=== PATIENT | female | born 1940 | race Caucasian/White ===

== ENCOUNTER 2025-01-17 15:15 | Inpatient (IN) ==
[2025-01-17 15:48] LABS: Hematocrit (blood only) 30.1 % (37.0-47.0); Hemoglobin 11.0 g/dl (12.0-16.0); Immature Granulocytes # (auto) 0.03 K/uL (0.01-0.20); Immature Granulocytes % (auto) 0.4 %; Mean Corpuscular Hemoglobin 33.7 pg (25.0-34.0); Mean Corpuscular Volume 92.3 fL (80.0-100.0); Platelet Count 305 K/uL (130-400); RDW Standard Deviation 48.4 fL (36.4-46.3); Red Blood Count 3.26 M/uL (4.20-5.40); White Blood Count 6.90 K/ul (4.8-10.8)
[2025-01-17 16:07] LABS: Alanine Aminotransferase 41 U/L (7-52); Albumin Globulin Ratio 1.3 (0.9-2); Albumin Level 4.1 gm/dl (3.4-5.0); Alkaline Phosphatase 83 U/L (34-104); Anion Gap 9 (3-11); Bilirubin,Total 0.6 mg/dl (0.2-1.0); Blood Urea Nitrogen 17 mg/dl (6-23); Calcium 10.0 mg/dl (8.6-10.3); Carbon Dioxide 25 mmol/L (21-32); Chloride 90 mmol/L (98-107); Globulin 3.1 gm/dl (2.5-4.0); Glucose 100 mg/dl (70-99(Fasting)); Magnesium 1.9 mg/dl (1.7-2.4); Potassium 4.3 mmol/L (3.5-5.1); Sodium 124 mmol/L (136-145); Total Protein 7.2 gm/dl (6.0-8.3)
--- NOTE | 2025-01-17 16:15 | XRay Report ---
XR chest 1V not portable CLINICAL HISTORY: weakness COMPARISON STUDY: None FINDINGS: Heart size and pulmonary vasculature are normal. No consolidation or pleural effusion. No p neumothorax. IMPRESSION: No acute findings. ACT 112: Negative or not required by law. Electronically signed by: Ming Rhoades M.D. 01/17/2025 4:13 PM
[2025-01-17 16:43] LABS: Influenza A virus by PCR Negative (Neg); Influenza B virus by PCR Negative (Neg); SARS CoV2 RNA(COVID-19) Ceph NEGATIVE (Negative)
--- NOTE | 2025-01-17 17:16 | Emergency Department Note ---
Impression & Plan Acute hyponatremia, Weakness, Acute alteration in mental status, Adult myxedema ED Provider Note NAME: SILVERIO LEVIN AGE: 84 SEX: F : 1940 ARRIVES VIA: Walk-In INFORMANT: Patient, the patient's family ED PROVIDER(S): Maycol Quiñones DO CHIEF COMPLAINT: Altered mental status HPI: The patient is an 84-year-old female who presented to the emergency department with family for an evaluation of altered mental status. The patient has been having problems walking as well as remembering things. This reportedly started this morning. There is no reported trauma. There is no reported nausea vomiting or fevers. The patient does not take any medications at this time. The patient moved up to be with her daughter approximately 6 weeks ago. They are having trouble getting her medical history from her previous doctor and does not know what medications she takes. The patient has been eating and drinking normally. ROS: See above HPI for pertinent positives & negatives. A total of 10 systems reviewed and were otherwise negative. PAST MEDICAL HISTORY: See Below PAST SURGICAL HISTORY: See Below FAMILY HISTORY: See Below SOCIAL HISTORY: See Below HOME MEDICATIONS: See Below ALLERGIES: See Below VITALS: See Below PHYSICAL EXAMINATION: GENERAL: The patient is awake and alert. The patient is nonanxious appearing. EYES: The conjunctivae are clear. The pupils are round and reactive. EARS, NOSE, MOUTH AND THROAT: The nose is without any evidence of any deformity. NECK: The neck is nontender and supple. RESPIRATORY: Normal respiratory effort is noted there is no evidence of wheezing rhonchi or rales CARDIOVASCULAR: Regular rate and rhythm noted there no murmurs rubs or gallops normal S1 normal S2. GASTROINTESTINAL: The abdomen is soft. Abdomen is nontender. MUSCULOSKELETAL/EXTREMITIES: There is no evidence of gross deformity full range of motion is noted in the hips and shoulders. SKIN: Skin is warm and dry. Trace pedal edema was noted bilaterally. NEUROLOGIC: Patient is awake and oriented to person but not place time or situation. She does not recognize her family. Strength is symmetric but diminished. MEDICAL DECISION MAKING: The patient is an 84-year-old female who presented to the emergency department for an evaluation. The patient was having problems with weakness since this morning. She is been having trouble getting out of bed. She is also been experiencing some confusion. The patient recently moved into her daughter's home. She used to live in [facility]. She has been here for 6 weeks. It sounds that they have been having trouble getting the patient's medications and the patient has not been taking any of her outpatient medications. There is no reported trauma. The patient was confused on my physical exam. I discussed the patient's laboratory and radiographic studies with the family. Given her findings I do feel this may be related to the patient is noncompliant with her medication regimen specifically her thyroid medication. I discussed patient's condition with the on-call [facility] hospitalist. They have agreed to evaluate the patient in the emergency department. Triage Nursing notes reviewed. Prior medical records reviewed Vital Signs: reviewed and remarkable for elevated blood pressure. Differential diagnosis: Infection, hypoglycemia, electrolyte abnormalities, overdose, toxicologic, cardiac sources, intracerebral event, neurologic, trauma, as well as other pathologies. ER treatment provided: See below Diagnostics interpreted by me: ECG: EKG was obtained in the emergency department. My interpretation is normal sinus rhythm at 76 bpm. Low voltage was noted throughout. There was no ectopy. Nonspecific T wave flattening was also noted. Cardiac Monitoring: An order was placed for continuous cardiac monitoring. The monitor shows a rate of 69 bpm with sinus rhythm. Laboratory studies: As stated above and show below. Imaging studies: See below. Radiographic imaging was reviewed by myself Consultation(s): I discussed this case with Dr. Colmenares who is on-call for the [facility] hospitalist group. Past Med/Surg History Problem List (Updated 01/17/25 @ 18:31 by Maurice Colmenares MD) Essential hypertension Chronic kidney disease, stage IV (severe) SIADH (syndrome of inappropriate ADH production) Primary hypothyroidism Adult myxedema (Acute) Acute alteration in mental status (Acute) Weakness (Acute) Acute hyponatremia (Acute) MEN 1 (multiple endocrine neoplasia) Hypothyroidism Normocytic anemia CKD (chronic kidney disease) stage 4, GFR 15-29 ml/min Xerosis of skin Dementia Family History Aunt Pernicious anemia Dementia Mother Pernicious anemia Dementia Father Coronary heart disease Social History Smoking Status: Never smoker Second Hand Exposure: Yes ( heavy smoker, quit 20 years ago); Hx Alcohol Use: No Hx Substance Use: No Hearing Ability: Hard of Hearing marital status: Current Living Situation: Family Current Living Situation Comment: Currently living w daughter in pt daughter's home current occupational status: retired Feels Safe at Home: Yes Diet: regular caffeine: Yes (Hot tea ) Dental Care, Regularly: No Physical Activity Frequency: Does not Exercise Seatbelt Use: always Sunscreen Use: Yes Assistive Devices: Glasses, Walker and Wheelchair Allergies Allergies Allergy/AdvReac Type Severity Reaction Status Date / Time No Known Allergies Allergy Verified 12/24/24 10:58 Home Meds Home Medications Medication Instructions Recorded Confirmed No Known Home Medications 01/17/25 01/17/25 Results & Data (ED) Vital Signs Vital Signs - 24 hr 01/17/25 15:19 01/17/25 17:40 01/17/25 17:40 Temperature 36.5 C Temperature Source Temporal Artery Scan Pulse Rate 81 Pulse Rate [Apical] 70 Pulse Rhythm [Apical] Regular Pulse Strength [Apical] Normal Respiratory Rate 18 16 Respiratory Effort / Characteristics Non-Labored Spontaneous Non-Labored Spontaneous Respiratory Depth Normal Normal Respiratory Pattern Regular Blood Pressure 180/99 H Blood Pressure [Left Arm] 156/119 H Blood Pressure Mean 126 Blood Pressure Mean [Left Arm] 131 Blood Pressure Position [Left Arm] Semi-fowlers Pulse Oximetry 99 97 97 Oxygen Delivery Method Room Air Room Air Room Air Sepsis Recent Fever Within 48 Hours No Sepsis New/Unexplained Change in Mental Status N/A Sepsis Action Taken by Nursing No Action Required 01/17/25 18:29 Temperature Temperature Source Pulse Rate Pulse Rate [Apical] 69 Pulse Rhythm [Apical] Regular Pulse Strength [Apical] Normal Respiratory Rate 16 Respiratory Effort / Characteristics Non-Labored Spontaneous Respiratory Depth Normal Respiratory Pattern Regular Blood Pressure Blood Pressure [Left Arm] 162/134 H Blood Pressure Mean Blood Pressure Mean [Left Arm] 143 Blood Pressure Position [Left Arm] Semi-fowlers Pulse Oximetry 90 Oxygen Delivery Method Room Air Sepsis Recent Fever Within 48 Hours Sepsis New/Unexplained Change in Mental Status Sepsis Action Taken by Snf Medications Current Medication List: was personally reviewed by me Laboratory Data Attestation: I reviewed the patient's lab results. 01/17/25 15:33 01/17/25 15:33 Lab Results 01/17/25 01/17/25 Range/Units 15:33 17:33 WBC 6.90 (4.8-10.8) K/ul RBC 3.26 L (4.20-5.40) M/uL Hgb 11.0 L (12.0-16.0) g/dl Hct 30.1 L (37.0-47.0) % MCV 92.3 (80.0-100.0) fL MCH 33.7 (25.0-34.0) pg MCHC 36.5 H (32.0-36.0) g/dL RDW Std Deviation 48.4 H (36.4-46.3) fL RDW Coeff of Ryan 14.1 (11.5-14.5) % Plt Count 305 (130-400) K/uL MPV 9.0 L (9.4-12.4) fL Immature Gran % (Auto) 0.4 % Neut % (Auto) 65.9 % Lymph % (Auto) 22.0 % [place] % (Auto) 10.4 % Eos % (Auto) 0.9 % Baso % (Auto) 0.4 % Neut # (Auto) 4.54 (1.40-6.50) K/uL Lymph # (Auto) 1.52 (1.20-3.40) K/uL [place] # (Auto) 0.72 H (0.11-0.59) K/uL Eos # (Auto) 0.06 (0.00-0.50) K/uL Baso # (Auto) 0.03 (0.00-0.20) K/uL Immature Gran # (Auto) 0.03 (0.01-0.20) K/uL Sodium 124 L (136-145) mmol/L Potassium 4.3 (3.5-5.1) mmol/L Chloride 90 L (98-107) mmol/L Carbon Dioxide 25 (21-32) mmol/L Anion Gap 9 (3-11) BUN 17 (6-23) mg/dl Creatinine 1.75 H (0.6-1.2) mg/dl Est Cr Clr Drug Dosing Not Reportable eGFR 28.56 BUN/Creatinine Ratio 9.7 L (10-20) Glucose 100 H (70-99(Fasting)) mg/dl Osmolality 265 L (280-300) mOsm/kg Calcium 10.0 (8.6-10.3) mg/dl Magnesium 1.9 (1.7-2.4) mg/dl Total Bilirubin 0.6 (0.2-1.0) mg/dl AST 66 H (13-39) U/L ALT 41 (7-52) U/L Alkaline Phosphatase 83 (34-104) U/L Total Protein 7.2 (6.0-8.3) gm/dl Albumin 4.1 (3.4-5.0) gm/dl Globulin 3.1 (2.5-4.0) gm/dl Albumin/Globulin Ratio 1.3 (0.9-2) TSH 288.971 H (0.300-4.500) uIu/ml Free T4 < 0.32 L (0.61-1.60) ng/dl Urine Color Yellow Urine Appearance Clear (Clear) Urine pH 5.5 (4.5-7.5) Ur Specific [place] 1.018 (1.000-1.030) Urine Protein 2+ H (Negative) Urine Glucose (UA) Negative (Negative) Urine Ketones Negative (Negative) Urine Blood Negative (Negative) Urine Nitrite Negative (Negative) Urine Bilirubin Negative (Negative) Urine Urobilinogen Negative (Negative) Ur Leukocyte Esterase Trace H (Negative) Urine WBC (Auto) 0-5 (0-5) /hpf Urine RBC (Auto) 0-2 (0-2) /hpf U Hyaline Cast (Auto) 3-5 H (0-2) /lpf U Epithel Cells (Auto) 3-5 H (0-2) /hpf Urine Bacteria (Auto) 2+ H (None Seen) Hyaline Casts Present A (None Presnt) /lpf Urine Mucus Present A (None Prsent) Ur Random Sodium 54 mmol/L Urine Comment SARS-CoV-2 (PCR) NEGATIVE (Negative) Influenza Type A (PCR) Negative (Neg) Influenza Type B (PCR) Negative (Neg) RSV (RT-PCR) Negative (Neg) Administered Medications Discontinued Medications Levothyroxine Sodium 100 mcg/ (Syringe) 5 mls @ 2 mls/min IV NOW ONE; Protocol Stop: 01/17/25 18:22 Last Admin: 01/17/25 18:52 Dose: 2 mls/min Documented By: Miscellaneous (Patient's Height &/Or Weight Needed) 1 each N/A NOW STA Stop: 01/17/25 18:29 Last Admin: 01/17/25 18:53 Dose: 1 each Documented By: MSG Imaging Data Attestation: I personally reviewed and interpreted this imaging study as follows: My Impression: 1 view chest x-ray was obtained in the emergency department. My interpretation is no free air or definite infiltrate, final report below. Radiologist's Impression: Chest X-Ray 01/17/25 15:21 XR chest 1V not portable CLINICAL HISTORY: weakness COMPARISON STUDY: None FINDINGS: Heart size and pulmonary vasculature are normal. No consolidation or pleural effusion. No pneumothorax. IMPRESSION: No acute findings. ACT 112: Negative or not required by law. Electronically signed by: Ming Rhoades M.D. 01/17/2025 4:[address] 01/17/25 17:04 EXAMINATION: Head CT without CLINICAL HISTORY: Dementia, sudden loss of using legs when she woke up this morning. PRIORS: None TECHNIQUE: Contiguous axial images were obtained through the head without the use of intravenous contrast. Sagittal and coronal reformations are supplied. FINDINGS: Motion artifact degrades image quality. Age appropriate parenchymal volume is noted. Chaparro-white differentiation is preserved. No edema or midline shift. No intra-axial or extra-axial hemorrhage. Ventricles are normal in size and configuration. Brainstem and cerebellum have a normal appearance. Calvarium unremarkable. Paranasal sinuses and mastoid air cells are well-pneumatized. Globes are intact. No retrobulbar abnormality. IMPRESSION: No CT evidence of an acute intracranial abnormality. If clinically appropriate, brain MRI could be obtained as appropriate. Electronically signed by Ingris Fuller 01-17-2025 6:08 PM Discharge Plan Visit Data Chief Complaint: Leg Weakness, Bilateral Stated Complaint: INCOHERANT, UNABLE TO WALK ED Provider: Maycol Quiñones Discharge Problem: Acute hyponatremia, Weakness, Acute alteration in mental status, Adult myxedema Patient Disposition: Being Evaluated by Hospitalist Condition: Fair Forms Stand Alone Forms: My Contactual Prescriptions Prescriptions: No Action No Known Home Medications Referrals Referrals: Lizett Lentz MD [Primary Care Provider] -
[2025-01-17 17:29] LABS: T4 Free Thyroxine < 0.32 ng/dl (0.61-1.60)
--- NOTE | 2025-01-17 18:08 | CT Scan Report ---
EXAMINATION: Head CT without CLINICAL HISTORY: Dementia, sudden loss of using legs when she woke up this morning. PRIORS: None TECHNIQUE: Contiguous axial images were obtained through the head without the use of intravenous contrast. Sagittal and coronal reformations are supplied. FINDINGS: Motion artifact degrades image quality. Age appropriate parenchymal volume is noted. Chaparro-white differentiation is preserved. No edema or midline shift. No intra-axial or extra-axial hemorrhage. Ventricles are normal in size and configuration. Brainstem and cerebellum have a normal appearance. Calvarium unremarkable. Paranasal sinuses and mastoid air cells are well-pneumatized. Globes are intact. No retrobulbar abnormality. IMPRESSION: No CT evidence of an acute intracranial abnormality. If clinically appropriate, brain MRI could be obtained as appropriate. Electronically signed by Ingris Fuller 01-17-2025 6:08 PM
[2025-01-17 18:20] LABS: Appearance Urine Clear (Clear); Glucose Urine UA Negative (Negative); RBC Urine Automated 0-2 /hpf (0-2); WBC Urine Automated 0-5 /hpf (0-5)
--- NOTE | 2025-01-17 18:32 | History & Physical Report ---
Date of Service January 17, 2025 Assessment & Plan (1) Primary hypothyroidism: Plan: Profoundly hypothyroid with TSH 288 and free T4 markedly low. Parenteral levothyroxine replacement started in the ED and will continue daily until she is switched to oral replacement. Telemetry. (2) SIADH (syndrome of inappropriate ADH production): Plan: Sodium is 124 with low serum osmolality. Fluid restriction. Serial labs. (3) Chronic kidney disease, stage IV (severe): Plan: Creatinine 1.7 on admission. Her mouth is moist and she is urinating so I cannot say for sure that she is volume depleted. Monitor intake and output. Serial labs (4) Essential hypertension: Plan: Blood pressure elevated on admission. Will follow (5) Dementia: Plan: Supportive care. Plan OT and PT assessments will be ordered when appropriate. She may need SNF or rehab placement History of Present Illness Chief Complaint: Weakness, ambulatory dysfunction Primary Care Provider: Lizett Lentz MD 84-year-old white female with dementia who has become progressively weaker over the past several weeks according to her daughter. Today she was unable to ambulate at all. She was brought to the ED for evaluation. She was found to have markedly elevated TSH with with very low free T4 levels. She has a past history of thyroid disorder but has not been taking any medications whatsoever lately. She also has evidence of SIADH with sodium 124 and serum osmolarity low at 265. Her creatinine is 1.7 but she does have a diagnosis of chronic kidney disease stage III-IV. IV Synthroid 100 mcg was ordered while in the ED and will continue daily before she is switched to oral replacement therapy. OT and PT assessments will be obtained when appropriate. Her daughter is at the bedside and states she has a DNR/DNI patient. No fever, no vomiting, no diarrhea. She is admitted for further evaluation and treatment Allergies Allergy/AdvReac Type Severity Reaction Status Date / Time No Known Allergies Allergy Verified 12/24/24 10:58 Home Medications Medication Instructions Recorded Confirmed Type urea 10 % lotion 1 applic topical DAILY #236 mL 12/24/24 12/24/24 Rx Past Med/Surg History Problem List (Updated 01/17/25 @ 18:31 by Maurice Colmenares MD) Essential hypertension Chronic kidney disease, stage IV (severe) SIADH (syndrome of inappropriate ADH production) Primary hypothyroidism Adult myxedema (Acute) Acute alteration in mental status (Acute) Weakness (Acute) Acute hyponatremia (Acute) MEN 1 (multiple endocrine neoplasia) Hypothyroidism Normocytic anemia CKD (chronic kidney disease) stage 4, GFR 15-29 ml/min Xerosis of skin Dementia Family History Aunt Pernicious anemia Dementia Mother Pernicious anemia Dementia Father Coronary heart disease Social History Smoking Status: Never smoker Second Hand Exposure: Yes ( heavy smoker, quit 20 years ago); Hx Alcohol Use: No Hx Substance Use: No Hearing Ability: Hard of Hearing marital status: Current Living Situation: Family Current Living Situation Comment: Currently living w daughter in pt daughter's home current occupational status: retired Feels Safe at Home: Yes Diet: regular caffeine: Yes (Hot tea ) Dental Care, Regularly: No Physical Activity Frequency: Does not Exercise Seatbelt Use: always Sunscreen Use: Yes Assistive Devices: Glasses, Walker and Wheelchair Review of Systems 2 Review of Systems: The patient has severe dementia and is unable to accurately answer any questions regarding review of systems at this time Physical Exam 2 Physical Exam: General-awake and alert. Disoriented though. She smiles at me but is nonverbal. No fever HEENT-head atraumatic and normocephalic, pupils equal and reactive to light, extraocular muscles intact Neck-no lymphadenopathy or thyromegaly, trachea midline Chest-clear to auscultation. No rales, wheezing or rhonchi Cardiac-regular rate and rhythm, normal S1 and S2 Abdomen-normal bowel sounds, no hepatosplenomegaly Extremities-no cyanosis, clubbing, or edema Skindry and cracked on multiple extremities Neuro-cranial nerves II through XII intact, motor and sensory function within normal limits, strength symmetrical with generalized weakness, no focal deficits Psych-normal affect, normal mood Results & Data Results & Data Vital Signs (Past 12 Hours) Vital Signs Temp Pulse Pulse Resp BP BP Pulse Ox 01/17/25 17:40 70 16 156/119 H 97 01/17/25 17:40 97 01/17/25 15:19 36.5 C 81 18 180/99 H 99 O2 Del Method 01/17/25 17:40 Room Air 01/17/25 17:40 Room Air 01/17/25 15:19 Room Air Laboratory Results 01/17/25 15:33 01/17/25 15:33 Code Status & VTE Plan Code Status DNR/DNI PG Care Time/CCT Total # of Minutes Spent Total Time Spent with Patient: Total time spent is greater than 50% in coordination of care (as documented) at patient's floor/unit and/or counseling patient: Coding Level of Care Code 36890 INT INP/OBS CARE 3/75MIN Diagnoses Primary hypothyroidism E03.9 SIADH (syndrome of inappropriate ADH production) E22.2 Chronic kidney disease, stage IV (severe) N18.4 Essential hypertension I10 Dementia F03.90
[2025-01-17 18:33] LABS: Bacteria Urine Automated 2+ (None Seen)
[2025-01-17] MEDS: LEVOTHYROXINE SODIUM 100 MCG in SYRINGE 0 ML IV ONE (18:52)
[2025-01-17] MEDS: Patient's HEIGHT &/or WEIGHT Needed STA (18:53)
[2025-01-17] MEDS ORDERED: ONDANSETRON INJ 2 MG/ML 2 ML VIAL IV PRN (22:56)
[2025-01-17] MEDS: HEPARIN SOD 5,000 UNIT/0.5 ML VIAL SQ SCH (23:33)
[2025-01-18 06:30] LABS: Hematocrit (blood only) 29.1 % (37.0-47.0); Hemoglobin 10.5 g/dl (12.0-16.0); Immature Granulocytes # (auto) 0.02 K/uL (0.01-0.20); Immature Granulocytes % (auto) 0.3 %; Mean Corpuscular Hemoglobin 32.4 pg (25.0-34.0); Mean Corpuscular Volume 89.8 fL (80.0-100.0); Platelet Count 303 K/uL (130-400); RDW Standard Deviation 45.8 fL (36.4-46.3); Red Blood Count 3.24 M/uL (4.20-5.40); White Blood Count 7.03 K/ul (4.8-10.8)
[2025-01-18 07:12] LABS: Anion Gap 9 (3-11); Blood Urea Nitrogen 16 mg/dl (6-23); Calcium 9.5 mg/dl (8.6-10.3); Carbon Dioxide 25 mmol/L (21-32); Chloride 91 mmol/L (98-107); Creatinine Clr Calc Pharmacy 22.7 ml/min; Glucose 78 mg/dl (70-99(Fasting)); Potassium 4.0 mmol/L (3.5-5.1); Sodium 125 mmol/L (136-145)
[2025-01-18 07:30] LABS: T4 Free Thyroxine < 0.32 ng/dl (0.61-1.60)
[2025-01-18] MEDS: cefTRIAXone SODIUM 1,000 MG/50 ML BAG IV SCH (10:29)
[2025-01-18] MEDS: LEVOTHYROXINE SODIUM 100 MCG in SYRINGE 0 ML IV SCH (10:56)
--- NOTE | 2025-01-18 10:56 | Electrocardiogram Report ---
Test Reason : Blood Pressure : */* mmHG Vent. Rate : 76 BPM Atrial Rate : 76 BPM P-R Int : 166 ms QRS Dur : 84 ms QT Int : 372 ms P-R-T Axes : 81 202 8 degrees QTcB Int : 418 ms Normal sinus rhythm Possible Right ventricular hypertrophy possible Inferior infarct , age undetermined Anterolateral infarct , age undetermined Abnormal ECG No previous ECGs available Confirmed by Nitesh Trinidad ([id number]) on 01/18/2025 10:55:57 AM Referred By: REFERRED SELF Confirmed By: Nitesh Trinidad
--- NOTE | 2025-01-18 13:10 | Hospitalist Progress Note ---
Date of Service January 18, 2025 Assessment & Plan (1) Primary hypothyroidism: Plan: Profoundly hypothyroid with TSH 288 on admission and free T4 markedly low. Parenteral levothyroxine replacement started in the ED and will continue daily until she is switched to oral replacement. Telemetry. (2) SIADH (syndrome of inappropriate ADH production): Plan: Sodium 124 with low serum osmolality on admission. Sodium only slightly improved today at 125, January 18. Continue fluid restriction. Serial labs. (3) Chronic kidney disease, stage IV (severe): Plan: Creatinine 1.7 on admission. Her mouth was moist and she is urinating so I cannot say for sure that she is volume depleted on admission. Monitor intake and output. Serial labs (4) Essential hypertension: Plan: Blood pressure remains elevated. Oral hydralazine started. Continue telemetry (5) Dementia: Plan: Supportive care. Plan OT and PT assessments have been ordered. She will remain hospitalized through the weekend. Admission and Anticipated Discharge Date Admission Date: January 17, 2025 Subjective Awake and alert. Severe baseline dementia and confusion. Rocephin started for what appears to be a UTI. Sodium about the same as yesterday at 125. Blood pressure remains elevated and oral hydralazine started. OT and PT assessments requested Review of Systems 2 Review of Systems: The patient has severe dementia and is unable to accurately answer any questions regarding review of systems at this time Physical Exam 2 Physical Exam: General-awake and alert. Disoriented though. She smiles at me but is nonverbal. No fever HEENT-head atraumatic and normocephalic, pupils equal and reactive to light, extraocular muscles intact Neck-no lymphadenopathy or thyromegaly, trachea midline Chest-clear to auscultation. No rales, wheezing or rhonchi Cardiac-regular rate and rhythm, normal S1 and S2 Abdomen-normal bowel sounds, no hepatosplenomegaly Extremities-no cyanosis, clubbing, or edema Skindry and cracked on multiple extremities Neuro-cranial nerves II through XII intact, motor and sensory function within normal limits, strength symmetrical with generalized weakness, no focal deficits Psych-normal affect, normal mood Results & Data Results & Data Vital Signs (Past 12 Hours) Vital Signs Temp Pulse Resp BP Pulse Ox O2 Del Method 01/18/25 11:28 36.3 C L 71 13 141/83 H 95 Room Air 01/18/25 08:00 36.3 C L 72 19 188/104 H 98 Room Air 01/18/25 07:30 Room Air 01/18/25 03:41 36.6 C 65 16 173/70 H 98 Room Air Laboratory Results 01/18/25 05:23 01/18/25 05:23 PG Care Time/CCT Total # of Minutes Spent Total Time Spent with Patient: Total time spent is greater than 50% in coordination of care (as documented) at patient's floor/unit and/or counseling patient: Coding Level of Care Code 07737 SUB INP/OBS CARE 3/50MIN Diagnoses Primary hypothyroidism E03.9 SIADH (syndrome of inappropriate ADH production) E22.2 Chronic kidney disease, stage IV (severe) N18.4 Essential hypertension I10 Dementia F03.90
[2025-01-19 07:08] LABS: Hematocrit (blood only) 29.1 % (37.0-47.0); Hemoglobin 10.7 g/dl (12.0-16.0); Immature Granulocytes # (auto) 0.02 K/uL (0.01-0.20); Immature Granulocytes % (auto) 0.3 %; Mean Corpuscular Hemoglobin 33.1 pg (25.0-34.0); Mean Corpuscular Volume 90.1 fL (80.0-100.0); Platelet Count 293 K/uL (130-400); RDW Standard Deviation 45.7 fL (36.4-46.3); Red Blood Count 3.23 M/uL (4.20-5.40); White Blood Count 6.55 K/ul (4.8-10.8)
[2025-01-19 08:06] LABS: Anion Gap 8.0 (3-11); Blood Urea Nitrogen 16.0 mg/dl (6-23); Calcium 9.6 mg/dl (8.6-10.3); Carbon Dioxide 26.0 mmol/L (21-32); Chloride 90.0 mmol/L (98-107); Creatinine Clr Calc Pharmacy 23.3 ml/min; Glucose 72.0 mg/dl (70-99(Fasting)); Potassium 4.1 mmol/L (3.5-5.1); Sodium 124.0 mmol/L (136-145)
[2025-01-19 08:24] LABS: T4 Free Thyroxine 0.33 ng/dl (0.61-1.60)
--- NOTE | 2025-01-19 14:09 | Hospitalist Progress Note ---
Date of Service January 19, 2025 Assessment & Plan (1) Primary hypothyroidism: Plan: Profoundly hypothyroid with TSH 288 on admission and free T4 markedly low. Parenteral levothyroxine replacement started in the ED and will continue daily until she is switched to oral replacement. Telemetry. (2) SIADH (syndrome of inappropriate ADH production): Plan: Sodium 124 with low serum osmolality on admission. Sodium has not improved yet and might take some time to improve considering she has concurrent severe primary hypothyroidism. Continue fluid restriction. Serial labs. (3) Chronic kidney disease, stage IV (severe): Plan: Creatinine 1.7 on admission. Creatinine has trended downward to 1.5 now, January 19. Her mouth was moist and she is urinating so I cannot say for sure that she is volume depleted on admission. Monitor intake and output. Serial labs (4) Essential hypertension: Plan: Blood pressure remains elevated. Oral hydralazine has been started and dosage was uptitrated today, January 19. Continue telemetry (5) Dementia: Plan: Supportive care. Plan OT and PT assessments have been ordered. She will remain hospitalized through the weekend. It appears she will need SNF placement at the time of discharge this coming week Admission and Anticipated Discharge Date Admission Date: January 17, 2025 Subjective The patient is alert but disoriented from severe dementia. Daughter is at the bedside. No new developments. Blood pressure remains elevated and hydralazine was uptitrated today, January 19. Urine culture is growing 3 different organisms and she does not appear to have a UTI. Rocephin has been discontinued. Creatinine is trending down slowly to 1.5. Sodium remains low at 124 and may take some time to EYES: Pupils round equal and react to light, extraocular movements full, no injection.. She remains on intravenous Synthroid. It appears she will need placement at the time of discharge sometime next week. Review of Systems 2 Review of Systems: The patient has severe dementia and is unable to accurately answer any questions regarding review of systems at this time Physical Exam 2 Physical Exam: General-awake and alert. Disoriented though. She smiles at me but is nonverbal. No fever HEENT-head atraumatic and normocephalic, pupils equal and reactive to light, extraocular muscles intact Neck-no lymphadenopathy or thyromegaly, trachea midline Chest-clear to auscultation. No rales, wheezing or rhonchi Cardiac-regular rate and rhythm, normal S1 and S2 Abdomen-normal bowel sounds, no hepatosplenomegaly Extremities-no cyanosis, clubbing, or edema Skindry and cracked on multiple extremities Neuro-cranial nerves II through XII intact, motor and sensory function within normal limits, strength symmetrical with generalized weakness, no focal deficits Psych-normal affect, normal mood Results & Data Results & Data Vital Signs (Past 12 Hours) Vital Signs Temp Pulse Resp BP Pulse Ox O2 Del Method 01/19/25 11:03 36.6 C 93 H 17 155/97 H 97 Room Air 01/19/25 08:02 90 14 189/99 H 98 Room Air 01/19/25 07:43 Room Air 01/19/25 07:30 220/90 H 01/19/25 02:45 36.3 C L 63 16 172/85 H 98 Room Air Laboratory Results 01/19/25 05:59 01/19/25 05:59 PG Care Time/CCT Total # of Minutes Spent Total Time Spent with Patient: Total time spent is greater than 50% in coordination of care (as documented) at patient's floor/unit and/or counseling patient: Coding Level of Care Code 41600 SUB INP/OBS CARE 3/50MIN Diagnoses Primary hypothyroidism E03.9 SIADH (syndrome of inappropriate ADH production) E22.2 Chronic kidney disease, stage IV (severe) N18.4 Essential hypertension I10 Dementia F03.90
[2025-01-20 07:01] LABS: Hematocrit (blood only) 27.3 % (37.0-47.0); Hemoglobin 9.8 g/dl (12.0-16.0); Immature Granulocytes # (auto) 0.03 K/uL (0.01-0.20); Immature Granulocytes % (auto) 0.5 %; Mean Corpuscular Hemoglobin 32.2 pg (25.0-34.0); Mean Corpuscular Volume 89.8 fL (80.0-100.0); Platelet Count 301 K/uL (130-400); RDW Standard Deviation 45.8 fL (36.4-46.3); Red Blood Count 3.04 M/uL (4.20-5.40); White Blood Count 6.43 K/ul (4.8-10.8)
[2025-01-20 07:25] LABS: Anion Gap 9.0 (3-11); Blood Urea Nitrogen 18.0 mg/dl (6-23); Calcium 9.3 mg/dl (8.6-10.3); Carbon Dioxide 24.0 mmol/L (21-32); Chloride 89.0 mmol/L (98-107); Creatinine Clr Calc Pharmacy 22.3 ml/min; Glucose 79.0 mg/dl (70-99(Fasting)); Potassium 3.9 mmol/L (3.5-5.1); Sodium 122.0 mmol/L (136-145)
[2025-01-20 07:42] LABS: T4 Free Thyroxine 0.37 ng/dl (0.61-1.60)
--- NOTE | 2025-01-20 12:07 | Hospitalist Progress Note ---
Date of Service January 20, 2025 Assessment & Plan (1) Primary hypothyroidism: Plan: Profoundly hypothyroid with TSH 288 on admission and free T4 markedly low. Parenteral levothyroxine replacement started in the ED and will continue daily until she is switched to oral replacement. Hopefully she can be switched to oral replacement tomorrow, January 21. Telemetry. (2) SIADH (syndrome of inappropriate ADH production): Plan: Sodium 124 with low serum osmolality on admission. Sodium has not improved yet and might take some time to improve considering she has concurrent severe primary hypothyroidism. Salt tablets have been started. Continue fluid restriction. Serial labs. (3) Chronic kidney disease, stage IV (severe): Plan: Creatinine 1.7 on admission. Creatinine h trended down to 1.5 yesterday and is 1.6 today, January 20. Her mouth was moist and she was urinating so I could not say for sure that she was volume depleted on admission. Monitor intake and output. Serial labs (4) Essential hypertension: Plan: Blood pressure has improved considerably with addition of hydralazine. Continue telemetry (5) Dementia: Plan: Supportive care. Plan Physical therapy recommends rehab placement at the time of discharge. OT assessment remains pending. She will remain hospitalized through the weekend. It appears she will need SNF placement at the time of discharge this coming week Admission and Anticipated Discharge Date Admission Date: January 17, 2025 Subjective Awake, alert, smiling. Blood pressure is much better after addition of hydralazine. Physical therapy recommends rehab placement at discharge. She remains on Synthroid parenteral replacement daily. TSH has improved from admission but still remains quite high. Sodium remains low and may take some time to improve. Salt tablets have been added. Review of Systems 2 Review of Systems: The patient has severe dementia and is unable to accurately answer any questions regarding review of systems at this time Physical Exam 2 Physical Exam: General-awake and alert. Disoriented though. She smiles at me but is nonverbal. No fever HEENT-head atraumatic and normocephalic, pupils equal and reactive to light, extraocular muscles intact Neck-no lymphadenopathy or thyromegaly, trachea midline Chest-clear to auscultation. No rales, wheezing or rhonchi Cardiac-regular rate and rhythm, normal S1 and S2 Abdomen-normal bowel sounds, no hepatosplenomegaly Extremities-no cyanosis, clubbing, or edema Skindry and cracked on multiple extremities Neuro-cranial nerves II through XII intact, motor and sensory function within normal limits, strength symmetrical with generalized weakness, no focal deficits Psych-normal affect, normal mood Results & Data Results & Data Vital Signs (Past 12 Hours) Vital Signs Temp Pulse Pulse Resp BP Pulse Ox O2 Del Method 01/20/25 10:42 36.6 C 74 19 128/93 98 Room Air 01/20/25 09:43 67 01/20/25 08:48 Room Air 01/20/25 06:53 36.9 C 72 20 141/80 H 97 Room Air 01/20/25 02:35 36.8 C 74 14 142/83 H 97 Room Air Laboratory Results 01/20/25 05:43 01/20/25 05:43 PG Care Time/CCT Total # of Minutes Spent Total Time Spent with Patient: Total time spent is greater than 50% in coordination of care (as documented) at patient's floor/unit and/or counseling patient: Coding Level of Care Code 38083 SUB INP/OBS CARE 3/50MIN Diagnoses Primary hypothyroidism E03.9 SIADH (syndrome of inappropriate ADH production) E22.2 Chronic kidney disease, stage IV (severe) N18.4 Essential hypertension I10 Dementia F03.90
[2025-01-20] MEDS: SODIUM CHLORIDE 1 GM TABLET PO SCH (13:07)
[2025-01-20] MEDS: INFLUENZA VACC TS2025-26(65y+)/PF (IIV3) 0.5mL Syr IM ONE (15:34)
[2025-01-21 06:52] LABS: Anion Gap 9.0 (3-11); Blood Urea Nitrogen 16.0 mg/dl (6-23); Calcium 9.4 mg/dl (8.6-10.3); Carbon Dioxide 23.0 mmol/L (21-32); Chloride 90.0 mmol/L (98-107); Creatinine Clr Calc Pharmacy 23.6 ml/min; Glucose 95.0 mg/dl (70-99(Fasting)); Potassium 3.9 mmol/L (3.5-5.1); Sodium 122.0 mmol/L (136-145)
[2025-01-21 07:29] LABS: Hematocrit (blood only) 27.4 % (37.0-47.0); Hemoglobin 10.0 g/dl (12.0-16.0); Immature Granulocytes # (auto) 0.04 K/uL (0.01-0.20); Immature Granulocytes % (auto) 0.4 %; Mean Corpuscular Hemoglobin 32.7 pg (25.0-34.0); Mean Corpuscular Volume 89.5 fL (80.0-100.0); Platelet Count 305 K/uL (130-400); RDW Standard Deviation 46.0 fL (36.4-46.3); Red Blood Count 3.06 M/uL (4.20-5.40); White Blood Count 9.67 K/ul (4.8-10.8)
[2025-01-21 08:43] LABS: Appearance Urine Clear (Clear); Bacteria Urine Automated None Seen (None Seen); Cast Urine Automated 0-2 /lpf (0-2); Glucose Urine UA Negative (Negative); RBC Urine Automated 0-2 /hpf (0-2); WBC Urine Automated >50 /hpf (0-5)
[2025-01-21] MEDS: MELATONIN 3 MG TAB PO PRN (19:25)
--- NOTE | 2025-01-21 20:04 | Hospitalist Progress Note ---
Date of Service January 21, 2025 Assessment & Plan (1) Primary hypothyroidism: Plan: Profoundly hypothyroid with TSH 288 on admission and free T4 markedly low. Parenteral levothyroxine replacement started in the ED and will continue daily until she is switched to oral replacement. Hopefully she can be switched to oral replacement tomorrow, January 21. Telemetry. (2) SIADH (syndrome of inappropriate ADH production): Plan: Sodium 124 (01/17/2025, 3:33pm) with low serum osmolality on admission. Sodium has not improved yet and might take some time to improve considering she has concurrent severe primary hypothyroidism. Salt tablets have been started. Continue fluid restriction. Sodium 122 (01/21/2025, 5:49am). ASYMPTOMATIC with no worsening in patient's underlying severe dementia without behavioral disturbances on 01/21/2025. cf., U/A (01/21/2025, 8:31am): clear yellow, epithelial cells 11-20 (consistent with urine sample contamination), WBC > 50, RBC 0-2, bacteria 0, LE 1+, nitrite- (3) Chronic kidney disease, stage IV (severe): Plan: Creatinine 1.75 (01/17/2025, 3:33pm). Creatinine 1.56 (01/21/2025, 5:49am). Creatinine 1.84 (12/24/2024, 12:05pm). Monitor intake and output. Check repeat creatinine level in the 01/22/2025 am. (4) Essential hypertension: Plan: BP modestly controlled with BP 157/86 (01/21/2025, 6:53am) to BP uncontrolled with BP 186/93 (01/22/2025, 7:09pm). Continue hydralazine 50mg PO tid and hydralazine 10mg IV q2 prn systolic BP > 180 mm Hg or diastolic BP > 110 mm Hg. (5) Dementia: Plan: Supportive care. Plan Physical therapy recommends rehab placement at the time of discharge. OT assessment remains pending. She will remain hospitalized through the weekend. It appears she will need SNF placement at the time of discharge this coming week Admission and Anticipated Discharge Date Admission Date: January 17, 2025 Subjective "I I I I. I don't know." Review of Systems Review of Systems: Unavailable as patient is too demented to answer any question(s). Physical Exam Constitutional: General: Comfortably confused, tries to be cooperative, but overtly incoherent. Wide awake and alert. Confused, NOT lethargic or obtunded. Patient speaks in complete, fluent, and articulate, but nonsensical sentences, without pause, interruption, cough, or wheeze. HEENT: NC/AT. PERRL. No nystagmus, gaze paresis, anisocoria, miosis, mydriasis, chemosis, hyphema, scleral injection, conjunctivitis, or pterygium. No otorrhea. No rhinorrhea. Neck: Supple, no stridor, bruit, or goiter. Jugular venous pressure 3 cm above the sternal angle of [place], which is typically 5 cm above the right atrium. Lymph: No anterior/posterior cervical lymphadenopathy, supraclavicular/infraclavicular lymphadenopathy, axilla/epitrochlear/inguinal lymphadenopathy. Chest: Symmetric rise and fall with respirations. Non-tender to palpation. Heart: RRR, S1 and S2. No S3 or S4 summation gallop. No tripartite friction rub. No murmur. Lungs: Clear to auscultation and percussion. No audible expiratory wheeze, egophony, pectoriloquy, increase in tactile fremitus, or flatness/dullness to percussion at the bases. Abd: Soft, non-tender, non-distended. Bowel sounds auscultated in all 4 quadrants. No rebound, guarding, Key's sign, or organomegaly. Ext: No clubbing, cyanosis, or edema. 2+ pedal pulses bilaterally. Skin: No decubitus ulcer or enanthem or exanthem. Neuro: No tremors, tics, or myoclonus. DTR+. Urology: No sandoval catheter. No purewick. No urethral discharge. Results & Data Results & Data Vital Signs (Past 12 Hours) Vital Signs Temp Pulse Pulse Resp BP Pulse Ox O2 Del Method 01/21/25 19:23 Room Air 01/21/25 19:09 36.7 C 82 20 186/93 H 95 Room Air 01/21/25 17:01 74 14 160/89 H 97 Room Air 01/21/25 15:33 36.4 C L 75 17 190/96 H 96 Room Air 01/21/25 14:37 83 01/21/25 10:59 36.2 C L 74 13 172/79 H 96 Room Air 01/21/25 10:04 Room Air Laboratory Results Abnormal lab results 01/21/25 01/21/25 Range/Units 05:49 08:31 RBC 3.06 L (4.20-5.40) M/uL Hgb 10.0 L (12.0-16.0) g/dl Hct 27.4 L (37.0-47.0) % MCHC 36.5 H (32.0-36.0) g/dL Neut # (Auto) 7.77 H (1.40-6.50) K/uL Lymph # (Auto) 0.95 L (1.20-3.40) K/uL [place] # (Auto) 0.86 H (0.11-0.59) K/uL Sodium 122 L (136-145) mmol/L Chloride 90 L (98-107) mmol/L Creatinine 1.56 H (0.6-1.2) mg/dl Urine Protein 3+ H (Negative) Ur Leukocyte Esterase 1+ H (Negative) Urine WBC (Auto) >50 H (0-5) /hpf U Epithel Cells (Auto) 11-20 H (0-2) /hpf PG Care Time/CCT Total # of Minutes Spent Total Time Spent with Patient: Total time spent is greater than 50% in coordination of care (as documented) at patient's floor/unit and/or counseling patient: Coding Level of Care Code 12469 SUB INP/OBS CARE 2/35MIN Diagnoses Primary hypothyroidism E03.9 SIADH (syndrome of inappropriate ADH production) E22.2 Chronic kidney disease, stage IV (severe) N18.4 Essential hypertension I10 Dementia F03.90
[2025-01-22] MEDS: LEVOTHYROXINE SODIUM 100 MCG TABLET PO SCH (05:51)
[2025-01-22 06:27] LABS: Hematocrit (blood only) 29.6 % (37.0-47.0); Hemoglobin 10.7 g/dl (12.0-16.0); Immature Granulocytes # (auto) 0.07 K/uL (0.01-0.20); Immature Granulocytes % (auto) 0.6 %; Mean Corpuscular Hemoglobin 32.0 pg (25.0-34.0); Mean Corpuscular Volume 88.6 fL (80.0-100.0); Platelet Count 322 K/uL (130-400); RDW Standard Deviation 43.8 fL (36.4-46.3); Red Blood Count 3.34 M/uL (4.20-5.40); White Blood Count 12.38 K/ul (4.8-10.8)
[2025-01-22 06:49] LABS: Anion Gap 11.0 (3-11); Blood Urea Nitrogen 16.0 mg/dl (6-23); Calcium 9.7 mg/dl (8.6-10.3); Carbon Dioxide 24.0 mmol/L (21-32); Chloride 87.0 mmol/L (98-107); Creatinine Clr Calc Pharmacy 25.4 ml/min; Glucose 102.0 mg/dl (70-99(Fasting)); Potassium 3.6 mmol/L (3.5-5.1); Sodium 122.0 mmol/L (136-145)
[2025-01-22] MEDS: ACETAMINOPHEN 325 MG TAB PO PRN (08:31)
[2025-01-22] MEDS ORDERED: LEVOTHYROXINE SODIUM 200 MCG TABLET PO SCH (09:00)
--- NOTE | 2025-01-22 21:32 | Hospitalist Progress Note ---
Date of Service January 22, 2025 Assessment & Plan (1) Primary hypothyroidism: Plan: Profoundly hypothyroid with TSH 288 on admission and free T4 markedly low. Parenteral levothyroxine replacement started in the ED and will continue daily until she is switched to oral replacement. Hopefully she can be switched to oral replacement tomorrow, January 21. Telemetry. (2) SIADH (syndrome of inappropriate ADH production): Plan: Sodium 124 (01/17/2025, 3:33pm) with low serum osmolality on admission. Sodium has not improved yet and might take some time to improve considering she has concurrent severe primary hypothyroidism. Salt tablets have been started. Continue fluid restriction. Sodium 122 (01/21/2025, 5:49am). ASYMPTOMATIC with no worsening in patient's underlying severe dementia without behavioral disturbances on 01/21/2025. cf., U/A (01/21/2025, 8:31am): clear yellow, epithelial cells 11-20 (consistent with urine sample contamination), WBC > 50, RBC 0-2, bacteria 0, LE 1+, nitrite- cf., urine culture (01/21/2025, 8:31am): pinpoint growth, re-incubating as of 01/22/2025. (3) Chronic kidney disease, stage IV (severe): Plan: Creatinine 1.75 (01/17/2025, 3:33pm). Creatinine 1.56 (01/21/2025, 5:49am). Creatinine 1.45 (01/22/2025, 5:34am). Creatinine 1.84 (12/24/2024, 12:05pm). Monitor intake and output. Check repeat creatinine level in the 01/23/2025 am. (4) Essential hypertension: Plan: BP modestly controlled with BP 143/83 (01/22/2025, 7:25pm). Continue hydralazine 50mg PO tid and hydralazine 10mg IV q2 prn systolic BP > 180 mm Hg or diastolic BP > 110 mm Hg. (5) Dementia: Plan: Supportive care. Plan Physical therapy recommends rehab placement at the time of discharge. OT assessment remains pending. She will remain hospitalized through the weekend. It appears she will need SNF placement at the time of discharge this coming week Admission and Anticipated Discharge Date Admission Date: January 17, 2025 Subjective "Where am I? Home?" Review of Systems Review of Systems: Unavailable as patient is too demented to answer any question(s). Physical Exam Constitutional: General: Comfortably confused, tries to be cooperative, but overtly incoherent. Wide awake and alert. Confused, NOT lethargic or obtunded. Patient speaks in complete, fluent, and articulate, but nonsensical sentences, without pause, interruption, cough, or wheeze. HEENT: NC/AT. PERRL. No nystagmus, gaze paresis, anisocoria, miosis, mydriasis, chemosis, hyphema, scleral injection, conjunctivitis, or pterygium. No otorrhea. No rhinorrhea. Neck: Supple, no stridor, bruit, or goiter. Jugular venous pressure 3 cm above the sternal angle of [place], which is typically 5 cm above the right atrium. Lymph: No anterior/posterior cervical lymphadenopathy, supraclavicular/infraclavicular lymphadenopathy, axilla/epitrochlear/inguinal lymphadenopathy. Chest: Symmetric rise and fall with respirations. Non-tender to palpation. Heart: RRR, S1 and S2. No S3 or S4 summation gallop. No tripartite friction rub. No murmur. Lungs: Clear to auscultation and percussion. No audible expiratory wheeze, egophony, pectoriloquy, increase in tactile fremitus, or flatness/dullness to percussion at the bases. Abd: Soft, non-tender, non-distended. Bowel sounds auscultated in all 4 quadrants. No rebound, guarding, Eky's sign, or organomegaly. Ext: No clubbing, cyanosis, or edema. 2+ pedal pulses bilaterally. Skin: No decubitus ulcer or enanthem or exanthem. Neuro: No tremors, tics, or myoclonus. DTR+. Urology: No sandoval catheter. No purewick. No urethral discharge. Results & Data Results & Data Vital Signs (Past 12 Hours) Vital Signs Temp Pulse Pulse Resp BP BP Pulse Ox 01/22/25 19:25 01/22/25 15:33 67 01/22/25 15:25 36.5 C 72 18 143/83 H 96 01/22/25 14:20 36.5 C 85 16 114/66 97 O2 Del Method 01/22/25 19:25 Room Air 01/22/25 15:33 01/22/25 15:25 Room Air 01/22/25 14:20 Room Air Laboratory Results Abnormal lab results 01/22/25 Range/Units 05:34 WBC 12.38 H (4.8-10.8) K/ul RBC 3.34 L (4.20-5.40) M/uL Hgb 10.7 L (12.0-16.0) g/dl Hct 29.6 L (37.0-47.0) % MCHC 36.1 H (32.0-36.0) g/dL MPV 9.3 L (9.4-12.4) fL Neut # (Auto) 10.63 H (1.40-6.50) K/uL Lymph # (Auto) 0.75 L (1.20-3.40) K/uL [place] # (Auto) 0.90 H (0.11-0.59) K/uL Sodium 122 L (136-145) mmol/L Chloride 87 L (98-107) mmol/L Creatinine 1.45 H (0.6-1.2) mg/dl Glucose 102 H (70-99(Fasting)) mg/dl PG Care Time/CCT Total # of Minutes Spent Total Time Spent with Patient: Total time spent is greater than 50% in coordination of care (as documented) at patient's floor/unit and/or counseling patient: Coding Level of Care Code 53511 SUB INP/OBS CARE 2/35MIN Diagnoses Primary hypothyroidism E03.9 SIADH (syndrome of inappropriate ADH production) E22.2 Chronic kidney disease, stage IV (severe) N18.4 Essential hypertension I10 Dementia F03.90
[2025-01-23 06:12] LABS: Hematocrit (blood only) 26.2 % (37.0-47.0); Hemoglobin 9.7 g/dl (12.0-16.0); Immature Granulocytes # (auto) 0.03 K/uL (0.01-0.20); Immature Granulocytes % (auto) 0.3 %; Mean Corpuscular Hemoglobin 33.3 pg (25.0-34.0); Mean Corpuscular Volume 90.0 fL (80.0-100.0); Platelet Count 276 K/uL (130-400); RDW Standard Deviation 46.5 fL (36.4-46.3); Red Blood Count 2.91 M/uL (4.20-5.40); White Blood Count 9.30 K/ul (4.8-10.8)
[2025-01-23 06:29] LABS: Anion Gap 10.0 (3-11); Blood Urea Nitrogen 20.0 mg/dl (6-23); Calcium 9.4 mg/dl (8.6-10.3); Carbon Dioxide 22.0 mmol/L (21-32); Chloride 90.0 mmol/L (98-107); Creatinine Clr Calc Pharmacy 21.7 ml/min; Glucose 92.0 mg/dl (70-99(Fasting)); Potassium 3.9 mmol/L (3.5-5.1); Sodium 122.0 mmol/L (136-145)
[2025-01-23 08:18] LABS: Magnesium 1.9 mg/dl (1.7-2.4)
--- NOTE | 2025-01-23 18:48 | Hospitalist Progress Note ---
Date of Service January 23, 2025 Assessment & Plan (1) Primary hypothyroidism: Plan: Profoundly hypothyroid with TSH 288 on admission and free T4 markedly low. Parenteral levothyroxine replacement with levothyroxine 100ug IV daily started in the ED; transitioned to levothyroxine 100ug PO daily on 01/22/2025, 5:51am. Patient should undergo repeat TSH testing in 6-8 weeks from 01/22/2025. (2) SIADH (syndrome of inappropriate ADH production): Plan: Sodium 124 (01/17/2025, 3:33pm) with low serum osmolality on admission. Sodium has not improved yet and might take some time to improve considering she has concurrent severe primary hypothyroidism. Salt tablets have been started. Continue fluid restriction. Sodium 122 (01/21/2025, 5:49am). Sodium 122 (01/22/2025, 5:34am). Sodium 122 (01/23/2025, 5:47am). ASYMPTOMATIC with no worsening in patient's underlying severe dementia without behavioral disturbances on 01/21/2025. cf., U/A (01/21/2025, 8:31am): clear yellow, epithelial cells 11-20 (consistent with urine sample contamination), WBC > 50, RBC 0-2, bacteria 0, LE 1+, nitrite- cf., Urine culture (01/21/2025, 8:31am): > 3 types of organisms, all moderate counts mixed probable skin nathaniel. Urine culture (01/16/2025, 3:35pm): > 3 types of organisms, all moderate counts mixed probable skin nathaniel. Hence, patient does not have acute UTI as an alternative etiology for her chronic hyponatremia with pre-admission Na 135 mmol/L (12/24/2024, 12:05pm). (3) Chronic kidney disease, stage IV (severe): Plan: Creatinine 1.75 (01/17/2025, 3:33pm). Creatinine 1.56 (01/21/2025, 5:49am). Creatinine 1.45 (01/22/2025, 5:34am). Creatinine 1.70 (01/23/2025, 5:47am). Creatinine 1.84 (12/24/2024, 12:05pm). Monitor intake and output. Check repeat creatinine level in the 01/24/2025 am. (4) Essential hypertension: Plan: BP modestly controlled with BP 143/83 (01/22/2025, 7:25pm) and BP 160/80 (01/23/2025, 4:27pm). Continue hydralazine 50mg PO tid and hydralazine 10mg IV q2 prn systolic BP > 180 mm Hg or diastolic BP > 110 mm Hg. (5) Dementia: Plan: Supportive care. Plan Physical therapy recommends rehab placement at the time of discharge. OT assessment remains pending. She will remain hospitalized through the weekend. It appears she will need SNF placement at the time of discharge this coming week Admission and Anticipated Discharge Date Admission Date: January 17, 2025 Subjective "I'm in [place]." (when asked the question: Where are you now, Ms. Wilson?). Review of Systems Review of Systems: Unavailable as patient is too demented to answer any question(s). Physical Exam Constitutional: General: Comfortably confused, tries to be cooperative, but overtly incoherent. Wide awake and alert. Confused, NOT lethargic or obtunded. Patient speaks in complete, fluent, and articulate, but nonsensical sentences, without pause, interruption, cough, or wheeze. HEENT: NC/AT. PERRL. No nystagmus, gaze paresis, anisocoria, miosis, mydriasis, chemosis, hyphema, scleral injection, conjunctivitis, or pterygium. No otorrhea. No rhinorrhea. Neck: Supple, no stridor, bruit, or goiter. Jugular venous pressure 3 cm above the sternal angle of [place], which is typically 5 cm above the right atrium. Lymph: No anterior/posterior cervical lymphadenopathy, supraclavicular/infraclavicular lymphadenopathy, axilla/epitrochlear/inguinal lymphadenopathy. Chest: Symmetric rise and fall with respirations. Non-tender to palpation. Heart: RRR, S1 and S2. No S3 or S4 summation gallop. No tripartite friction rub. No murmur. Lungs: Clear to auscultation and percussion. No audible expiratory wheeze, egophony, pectoriloquy, increase in tactile fremitus, or flatness/dullness to percussion at the bases. Abd: Soft, non-tender, non-distended. Bowel sounds auscultated in all 4 quadrants. No rebound, guarding, Key's sign, or organomegaly. Ext: No clubbing, cyanosis, or edema. 2+ pedal pulses bilaterally. Skin: No decubitus ulcer or enanthem or exanthem. Neuro: No tremors, tics, or myoclonus. DTR+. Urology: No sandoval catheter. No purewick. No urethral discharge. Results & Data Results & Data Vital Signs (Past 12 Hours) Vital Signs Temp Pulse Pulse Resp BP Pulse Ox O2 Del Method 01/23/25 16:27 36.7 C 84 18 160/80 H 96 Room Air 01/23/25 11:42 Room Air 01/23/25 11:32 36.8 C 77 16 135/58 L 96 Room Air 01/23/25 11:10 83 01/23/25 07:41 36.7 C 80 16 176/88 H 96 Room Air Laboratory Results Abnormal lab results 01/23/25 Range/Units 05:47 RBC 2.91 L (4.20-5.40) M/uL Hgb 9.7 L (12.0-16.0) g/dl Hct 26.2 L (37.0-47.0) % MCHC 37.0 H (32.0-36.0) g/dL RDW Std Deviation 46.5 H (36.4-46.3) fL MPV 9.1 L (9.4-12.4) fL Neut # (Auto) 7.18 H (1.40-6.50) K/uL Lymph # (Auto) 1.18 L (1.20-3.40) K/uL [place] # (Auto) 0.86 H (0.11-0.59) K/uL Sodium 122 L (136-145) mmol/L Chloride 90 L (98-107) mmol/L Creatinine 1.70 H (0.6-1.2) mg/dl Urine culture (01/16/2025, 3:35pm): > 3 types of organisms, all moderate counts mixed probable skin nathaniel. Urine culture (01/21/2025, 8:31am): > 3 types of organisms, all moderate counts mixed probable skin nathaniel. PG Care Time/CCT Total # of Minutes Spent Total Time Spent with Patient: Total time spent is greater than 50% in coordination of care (as documented) at patient's floor/unit and/or counseling patient: Coding Level of Care Code 88234 SUB INP/OBS CARE 2/35MIN Diagnoses Primary hypothyroidism E03.9 SIADH (syndrome of inappropriate ADH production) E22.2 Chronic kidney disease, stage IV (severe) N18.4 Essential hypertension I10 Dementia F03.90
[2025-01-23 23:49] VITALS: O2SAT 97
[2025-01-24 07:54] VITALS: RESP 20; TEMP 97.5
[2025-01-24 08:05] LABS: Anion Gap 9.0 (3-11); Blood Urea Nitrogen 18.0 mg/dl (6-23); Calcium 9.6 mg/dl (8.6-10.3); Carbon Dioxide 25.0 mmol/L (21-32); Chloride 91.0 mmol/L (98-107); Creatinine Clr Calc Pharmacy 22.4 ml/min; Glucose 93.0 mg/dl (70-99(Fasting)); Potassium 3.7 mmol/L (3.5-5.1); Sodium 125.0 mmol/L (136-145)
[2025-01-24 14:36] VITALS: BP 143/83; PULSE 77
--- NOTE | 2025-01-24 14:39 | Discharge Summary ---
Discharge Summary Date of Service January 24, 2025 Principal Dx & Hospital Course #1 = Principal Diagnosis (1) Primary hypothyroidism: Profoundly hypothyroid with TSH 288 on admission and free T4 markedly low. Parenteral levothyroxine replacement with levothyroxine 100ug IV daily started in the ED; transitioned to levothyroxine 100ug PO daily on 01/22/2025, 5:51am. Patient should undergo repeat TSH testing in 6-8 weeks from 01/22/2025. (2) SIADH (syndrome of inappropriate ADH production): Sodium 124 mmol/L (01/17/2025, 3:33pm)(admission). Of note, sodium levels might take some time to improve/increase, especially as patient has concurrent severe primary hypothyroidism. Salt tablets (e.g., sodium chloride 1g PO bid) were subsequently started, along with fluid restriction. Sodium 122 mmol/L (01/21/2025, 5:49am). Sodium 122 mmol/L (01/22/2025, 5:34am). Sodium 122 mmol/L (01/23/2025, 5:47am). Sodium 125 mmol/L (01/24/2025, 7:16am)(discharge). ASYMPTOMATIC with no worsening in patient's underlying severe dementia without behavioral disturbances on 01/21/2025 through discharge date 01/24/2025. cf., U/A (01/21/2025, 8:31am): clear yellow, epithelial cells 11-20 (consistent with urine sample contamination), WBC > 50, RBC 0-2, bacteria 0, LE 1+, nitrite- cf., Urine culture (01/21/2025, 8:31am): > 3 types of organisms, all moderate counts mixed probable skin nathaniel. Urine culture (01/16/2025, 3:35pm): > 3 types of organisms, all moderate counts mixed probable skin nathaniel. Hence, patient does NOT have acute UTI as an alternative etiology for her chronic hyponatremia with pre-admission Na 135 mmol/L (12/24/2024, 12:05pm). (3) Chronic kidney disease, stage IV (severe): Creatinine 1.75 mg/dL (01/17/2025, 3:33pm)(admission). Creatinine 1.56 mg/dL (01/21/2025, 5:49am). Creatinine 1.45 mg/dL (01/22/2025, 5:34am). Creatinine 1.70 mg/dL (01/23/2025, 5:47am). Creatinine 1.64 mg/dL (01/24/2025, 7:16am)(discharge). Creatinine 1.84 (12/24/2024, 12:05pm)(pre-admission) (4) Essential hypertension: BP modestly controlled with BP 143/83 (01/22/2025, 7:25pm), BP 160/80 (01/23/2025, 4:27pm), and discharge BP 161/88 (01/24/2025, 8:00am). Continue hydralazine 50mg PO tid and hydralazine 10mg IV q2 prn systolic BP > 180 mm Hg or diastolic BP > 110 mm Hg. (5) Dementia: Supportive care. Plan Physical Therapy and Occupational Therapy Services both recommend rehab placement at the time of discharge; patient was subsequently discharged to [facility] on 01/24/2025. Admission HPI Per Admitting Provider 84-year-old white female with dementia who has become progressively weaker over the past several weeks according to her daughter. Today she was unable to ambulate at all. She was brought to the ED for evaluation. She was found to have markedly elevated TSH with with very low free T4 levels. She has a past history of thyroid disorder but has not been taking any medications whatsoever lately. She also has evidence of SIADH with sodium 124 and serum osmolarity low at 265. Her creatinine is 1.7 but she does have a diagnosis of chronic kidney disease stage III-IV. IV Synthroid 100 mcg was ordered while in the ED and will continue daily before she is switched to oral replacement therapy. OT and PT assessments will be obtained when appropriate. Her daughter is at the bedside and states she has a DNR/DNI patient. No fever, no vomiting, no diarrhea. She is admitted for further evaluation and treatment Discharge Exam Constitutional General: Comfortably confused, tries to be cooperative, but overtly incoherent. Wide awake and alert. Overtly confused, NOT lethargic or obtunded. Patient speaks in complete, fluent, and articulate, but nonsensical sentences, without pause, interruption, cough, or wheeze. HEENT: NC/AT. PERRL. No nystagmus, gaze paresis, anisocoria, miosis, mydrias is, chemosis, hyphema, scleral injection, conjunctivitis, or pterygium. No otorrhea. No rhinorrhea. Neck: Supple, no stridor, bruit, or goiter. Jugular venous pressure 3 cm above the sternal angle of [place], which is typically 5 cm above the right atrium. Lymph: No anterior/posterior cervical lymphadenopathy, supraclavicular/infraclavicular lymphadenopathy, axilla/epitrochlear/inguinal lymphadenopathy. Chest: Symmetric rise and fall with respirations. Non-tender to palpation. Heart: RRR, S1 and S2. No S3 or S4 summation gallop. No tripartite friction rub. No murmur. Lungs: Clear to auscultation and percussion. No audible expiratory wheeze, egophony, pectoriloquy, increase in tactile fremitus, or flatness/dullness to percussion at the bases. Abd: Soft, non-tender, non-distended. Bowel sounds auscultated in all 4 quadrants. No rebound, guarding, Key's sign, or organomegaly. Ext: No clubbing, cyanosis, or edema. 2+ pedal pulses bilaterally. Skin: No decubitus ulcer or enanthem or exanthem. Neuro: No tremors, tics, or myoclonus. DTR+. Urology: No sandoval catheter. No purewick. Dry diaper. No urethral discharge. Discharge Plan Discharge Items Patient Disposition: Transfer [facility] Fac Reason For Visit: PROFOUND HYPOTHYROIDISM, SIADH Discharge Diagnosis: 1. [id number] hypothyroidism with myxedema coma, now RESOLVED on synthroid 100ug PO daily (start date/time, 01/22/2025, 5:51am). 2. [id number] euvolemic hyponatremia with admission Na 124 mmol/L (01/17/2025, 3:33pm), RESOLVING / asymptomatic with discharge Na 125 mmol/L (01/24/2025, 7:16am). 3. Severe, chronic end-stage dementia without behavioral disturbances. Condition on Discharge: Fair Activity: Resume your previous activity Lifting: Gradually increase as tolerated Bathing: No limitations Exercise/Sports: Gradually increase as tolerated Weightbearing: Full weightbearing Non-emergency contact: Primary Care Provider Call non-emergency contact if: you have any medication questions Follow-up/Referrals: Lizett Lentz MD [Primary Care Provider] - Diet: Heart Healthy Addtl Attending Provider Instructions: See your PCP Dr. Lizett Lentz within 5-7 days of hospital discharge. Pending Studies at Discharge: Yes Studies:: 1. Check repeat Na level in 5-7 days of hospital discharge. 2. Check repeat screening TSH in 6 weeks from having started patient on synthroid 100ug PO daily (start date/time, 01/22/2025, 5:51am). Stand-Alone Forms: [employer] Skilled Items Patient informed of condition?: Yes DNR: Yes Discharge Level of Care: Skilled Communicable Disease: No Discharge Prognosis: Stable Lines: None Urinary Catheter: No Medications and DC Order Prescriptions: New levothyroxine [Synthroid] 100 mcg Tablet 100 mcg PO DAILYBB Qty: 30 0RF hydralazine 50 mg Tablet 50 mg PO TID Qty: 90 0RF sodium chloride 1,000 mg Tablet,Soluble 1,000 mg PO BID Qty: 60 0RF Discharge Orders: Discharge Order (Routine); Ordered 01/24/25 Ordered By: Sukhwinder Crandall Admission Data Admit Date/Time: 01/17/25 18:20 Attending Provider: Sukhwinder Crandall Admit Provider: Maurice Colmenares Primary Care Provider: Lizett Lentz [facility] Colmen[facility] Hospital Stay Data Consultations 01/17/25 17:58 ED Decision to Admit Stat Diagnostic Imagining Performed 01/17/25 17:04 CT head/brain wo con Stat Pending Results Patient Have Any Pending Studies at Discharge: Yes Discharge Instructions Given to Patient (Per Discharging Provider) See your PCP Dr. Lizett Lentz within 5-7 days of hospital discharge. Total Time Total Time Spent Total Time Spent (In Minutes): 35 minutes. Of this time period, 19 minutes were spent in coordinating patient's discharge. Coding Level of Care Code 43938 INP/OBS DISCH >30 MIN Diagnoses Primary hypothyroidism E03.9 SIADH (syndrome of inappropriate ADH production) E22.2 Chronic kidney disease, stage IV (severe) N18.4 Essential hypertension I10 Dementia F03.90
== END 2025-01-24 15:13 | DRG 643 ==
LOC: SUATTDRO → ED 15:15 → SUATTDRO 18:20 → 2E 18:20